=== PATIENT | female | born 1990 | race Caucasian/White ===

== ENCOUNTER 2016-03-20 23:06 | Inpatient (IN) | payer OTHER ==
[~2016-03-20] VITALS: Ht 167.6 cm; Wt 70.8 kg
[2016-03-20 23:47] VITALS: Ht 167.6 cm; Wt 70.8 kg
[2016-03-21] VITALS (10 sets, daily range): BP systolic 82–124; RESP 18–20; TEMP 97.2–98.5
[2016-03-21] MEDS ORDERED: LIDOCAINE 1% BUFFERED 1 ML SYR INTRADERM PRN (00:25)
[2016-03-21] MEDS ORDERED: LIDOCAINE 1% 30 ML PF INFILTRATE ONE (00:25)
[2016-03-21] MEDS ORDERED: FAMOTIDINE 20 MG TAB PO PRN (00:25)
[2016-03-21] MEDS ORDERED: LACT RINGERS 1,000 ML IV SCH (00:25)
[2016-03-21] MEDS ORDERED: ONDANSETRON 4 MG VIAL IV PRN (00:25)
[2016-03-21] MEDS ORDERED: ACETAMINOPHEN 325 MG TAB PO PRN (00:25)
[2016-03-21] MEDS ORDERED: TERBUTALINE 1 MG/ML VIAL SUBQ PRN (00:25)
[2016-03-21] MEDS ORDERED: PROMETHAZINE 25 MG/ML VIAL IV PRN (00:25)
[2016-03-21] MEDS ORDERED: ALU/MAG/SIM 30 ML UDC PO PRN (00:25)
[2016-03-21] MEDS ORDERED: CEFAZOLIN (LD/OB) 100 ML IV PRN (00:25)
[2016-03-21] MEDS ORDERED: MORPHINE 4 MG/ML SYR IV PRN (00:25)
[2016-03-21] MEDS ORDERED: METOCLOPRAMIDE 10 MG/2 ML VIAL IV PUSH PRN (00:25)
[2016-03-21] MEDS ORDERED: FAMOTIDINE 20 MG INJ IV PRN (00:25)
[2016-03-21] MEDS ORDERED: OXYTOCIN 15 UNITS/250 ML NS 250 ML IV SCH ×2 (00:25→13:15)
[2016-03-21] MEDS ORDERED: ROPIV/FENT 0.2%-2MCG/ML 100 ML EPIDURAL ONE (04:11)
[2016-03-21] MEDS ORDERED: FENTANYL 100 MCG/2 ML AMP ONE (04:12)
[2016-03-21] MEDS ORDERED: LIDOCAINE/EPI 1.5% MPF 30 ML VIAL EPIDURAL ONE (07:43)
[2016-03-21] MEDS ORDERED: TDaP 0.5 ML VIAL IM.VACC ONE (13:15)
[2016-03-21] MEDS ORDERED: MEASLES,MUMPS,RUBELLA VAC SUBQ.VACC ONE (13:15)
[2016-03-21] MEDS ORDERED: MAG HYDROX 30 ML UDC PO PRN (13:15)
[2016-03-21] MEDS ORDERED: ZOLPIDEM 5 MG TAB PO PRN (13:15)
[2016-03-21] MEDS: ASTRINGENT MED PADS 40'S TOPICAL PRN (14:44)
[2016-03-21] MEDS: DERMOPLAST SPRAY TOPICAL PRN (14:44)
[2016-03-21] MEDS: Ibuprofen 600 MG TAB PO PRN (14:44)
[2016-03-22 02:01] VITALS: BP_SYST 105; RESP 16; TEMP 97.5
[2016-03-22] MEDS: Ibuprofen 600 MG TAB PO PRN ×3 (04:55→17:50)
[2016-03-22 06:31] VITALS: BP_SYST 102; RESP 20; TEMP 98.2
[2016-03-22] MEDS: DOCUSATE SOD 100 MG CAP PO SCH (08:40)
[2016-03-22 09:18] VITALS: BP_SYST 121; TEMP 97.4
[2016-03-22 09:19] VITALS: RESP 18
[2016-03-22 13:28] VITALS: BP_SYST 132; RESP 18; TEMP 97.6
[2016-03-23 05:23] VITALS: BP_SYST 106; RESP 16; TEMP 98.1
[2016-03-23] MEDS: Ibuprofen 600 MG TAB PO PRN ×3 (05:55→11:36)
[2016-03-23 09:05] VITALS: BP_SYST 107; RESP 14; TEMP 97.4
[2016-03-23] MEDS: DOCUSATE SOD 100 MG CAP PO SCH (09:16)
[2016-03-23] MEDS: ASTRINGENT MED PADS 40'S TOPICAL PRN (09:16)
[2016-03-23] MEDS: DERMOPLAST SPRAY TOPICAL PRN (09:16)
[2016-03-23 10:20] VITALS: BP_SYST 107; RESP 14; TEMP 97.4
== END 2016-03-23 12:12 | disposition home or self-care (01) | DRG 775 ==
LOC: LDOP 23:06 → LD 03-21 00:03 → OB 03-21 15:18
PROVIDERS: ADMIT Obstetrics & Gynecology; ATTEND Obstetrics & Gynecology
PROC: 10E0XZZ Delivery of Products of Conception, External Approach (ICD-10-PCS; principal; 2016-03-21)
PROC: 0W8NXZZ Division of Female Perineum, External Approach (ICD-10-PCS; 2016-03-21)
DX: O80 Encounter for full-term uncomplicated delivery (principal); Z37.0 Single live birth; Z3A.39 39 weeks gestation of pregnancy
CPT/HCPCS: 82803; 85014; 85018; 85025; 86850; 86870; 86900; 86901; 86970